=== PATIENT | female | born 1955 | race Caucasian/White ===

== ENCOUNTER 2017-03-25 08:08 | Outpatient (CLI) | payer OTHER ==
--- NOTE | 2017-03-25 09:39 | RAD ---
RIGHT HAND THREE VIEWS: History: Polyarthritis. Comparison: None. FINDINGS: Moderate to severe degenerative disease at the carpal metacarpal joint. Mild joint space narrowing. N o acute fracture or malalignment. IMPRESSION: Moderate to severe degenerative change at the carpal metacarpal joint of the thumb. No evidence for i nflammatory arthropathy. POS: OFF
--- NOTE | 2017-03-25 09:42 | RAD ---
LEFT HAND THREE VIEW: History: Polyarthritis. Comparison: None. FINDINGS: Moderate degenerative change of the thumb carpal metacarpal joint. Mild narrowing of the 2nd and 3rd metacarpal phalangeal joints. No erosions or periostitis. Radiocarpal alignment is normal. No acute fracture. IMPRESSION: 1. Moderate to severe degenerative disease of the carpal metacarpal joint. 2. Focal signal erosion of the medial margin of the third metacarpal head can be seen with inflammato ry arthropathy. POS: OFF
--- NOTE | 2017-03-25 09:44 | RAD ---
CERVICAL SPINE COMPLETE WITH FLEXION AND EXTENSION: History: Polyarthritis. Comparison: None. FINDINGS: There is no listhesis with flexion or extension. ACDF at C6-7. Moderate degenerative disc space heigh t loss at C5-6. No acute fracture or malalignment. IMPRESSION: 1. No listhesis with flexion or extension. 2. Moderate degenerative disc space height loss at C5-6. 3. Intact ACDF hardware at C6-7. POS: OFF
== END 2017-03-25 08:09 | disposition home or self-care (01) ==
LOC: SCSRAD 08:08
PROVIDERS: ATTEND Student in an Organized Health Care Education/Training Program
DX: M06.4 Inflammatory polyarthropathy (principal); M50.322 Other cervical disc degeneration at C5-C6 level; Z98.1 Arthrodesis status; M19.042 Primary osteoarthritis, left hand; M19.041 Primary osteoarthritis, right hand
CPT/HCPCS: 72052

== ENCOUNTER 2017-07-31 07:44 | Outpatient (CLI) | payer OTHER ==
--- NOTE | 2017-07-31 10:11 | MRI ---
CERVICAL SPINE MRI WITHOUT CONTRAST: HISTORY: Cervical radiculopathy. Cervical fusion. COMPARISON: None. TECHNIQUE: Cervical spine MRI is performed without intravenous Gadolinium administration. Multisequential, mult iplanar imaging is performed. CORRELATION: Cervical spine radiograph 03/25/17. FINDINGS: Appropriate T1 marrow signal intensity of the cervical vertebrae. Cervical spine vertebral height is maintained. There is no evidence of fracture. N significant STIR hyperintensity to suggest edema o r ligamentous injury. There is metallic susceptibility artifact associated with C6-C7 fusion changes. Visualized brain parenchyma, cervicomedullary junction, cervical cord, and the upper thoracic cord stewart ve a normal size and signal intensity. C2-C3: No significant disk-osteophyte complex. No significant central canal stenosis. Foramen are p atent. C3-C4: No significant disk-osteophyte complex. No significant central canal stenosis. Neural quita german are patent. Intrinsic T1 and T2 hyperintensity in the C3 vertebral body is likely due to small h emangioma. C4-C5: No significant disk-osteophyte complex. No significant central canal stenosis. Neural forami na are patent bilaterally. C5-C6: There is a broad-based disk-osteophyte complex that abuts the thecal sac. Ventral subarachno id space is effaced on the axial images. No significant mass effect upon the cord. No T2 hyperinten sity in the cord. Neural foramen are patent bilaterally. C6-C7: Disk prosthesis is present. No significant osteophyte complex. No significant central canal stenosis. Neural foramen are patent. C7-T1: No significant disk-osteophyte complex. No significant central canal stenosis. Neural forame n are patent. IMPRESSION: Post surgical changes at C6-C7. No significant central canal stenosis or significant foraminal narro wing. POS: [facility]
--- NOTE | 2017-07-31 10:41 | MRI ---
MRI LUMBAR SPINE WITHOUT CONTRAST: HISTORY: Lumbar radiculopathy with bilateral leg pain and numbness. Difficulty walking. COMPARISON: None. TECHNIQUE: Multiplanar, multisequence MR images were obtained of the lumbar spine without contrast. FINDINGS: A scar is seen in the paraspinal soft tissues in the mid lumbar spine. There is a tiny Tarlov cyst p osterior to the sacrum, within the central canal. The vertebral bodies demonstrate normal height and alignment without fracture or subluxation. Generalized disk desiccation is seen. The conus medullaris terminates normally at T12. The prevertebral soft tissues are unremarkable. T12-L1: Unremarkable. L1-L2: A small disk osteophyte complex is seen. No posterior facet arthrosis. No central canal acosta nosis. No neural foraminal stenosis. L2-L3: A minimal central protrusion is seen. Mild bilateral posterior facet arthrosis. No central canal stenosis. No neural foraminal stenosis. L3-L4: A minimal generalized concentric disk bulge is seen. Mild bilateral posterior facet arthrosi s. No central canal stenosis. Mild bilateral neural foraminal stenosis. L4-L5: A small disk osteophyte complex is seen. Mild bilateral posterior facet arthrosis. No centr al canal stenosis. Moderate left and mild right neural foraminal stenosis. L5-S1: A minimal generalized concentric disk bulge is seen. Moderate bilateral posterior facet arth rosis. No central canal stenosis. No neural foraminal stenosis. IMPRESSION: Mild degenerative changes of the lumbar spine, as above. POS: [facility]
== END 2017-07-31 07:45 | disposition home or self-care (01) ==
LOC: TBSIIMAG 07:44
PROVIDERS: ATTEND Neurological Surgery
DX: M47.26 Other spondylosis with radiculopathy, lumbar region (principal); M47.27 Other spondylosis with radiculopathy, lumbosacral region; M51.17 Intervertebral disc disorders with radiculopathy, lumbosacral region; M51.16 Intervertebral disc disorders with radiculopathy, lumbar region; Z98.890 Other specified postprocedural states
CPT/HCPCS: 72141; 72148

== ENCOUNTER 2018-07-22 04:52 | Outpatient (CLI) | payer OTHER ==
[2018-07-22 10:57] LABS: #Eosinphils 0.2 thou/uL (0.0-0.7); #Lymphocytes 2.1 thou/uL (1.20-3.40); #Monocytes 0.6 thou/uL (0.11-0.59); #Neutrophils 3.3 thou/uL (1.40-6.50); %Basophils 0.4 % (0.0-1.0); %Eosinophils 2.5 % (0.0-10.0); %Lymphocytes 34.1 % (21.0-51.0); %Monocytes 9.8 % (0.0-10.0); %Neutrophils 53.2 % (42.0-75.0); Hemoglobin 13.2 g/dL (12.0-16.0); Mean Corpuscular HGB CONC 32.3 g/dL (32.0-36.0); Mean Corpuscular Volume 86.7 fL (78.0-98.0); Mean Platelet Volume 8.3 fL (7.4-10.4); Platelet Count 209 thou/uL (130-400); RBC Distribution Width 12.7 % (11.5-14.5); Red Blood Cell (RBC) Count 4.71 mill/uL (4.20-5.40); White Blood Cell (WBC) Count 6.2 thou/uL (4.8-10.8)
[2018-07-22 12:13] LABS: Bilirubin Negative (Negative); Blood, Urine Negative (Negative); Clarity CLEAR (Clear); Glucose, Urine (Dipstick) Negative (Negative); Leukocyte Negative (Negative); Nitrite Negative (Negative); Protein, Urine (Dipstick) Negative (Neg-Trace); Specific Gravity, Urine 1.009 (1.002-1.036); Urobilinogen 0.2 mg/dL (0.2-1.0); pH, Urine 5.5 (5.0-9.0)
[2018-07-22 12:14] LABS: Bacteria/HPF None Seen HPF (None Seen); Hyaline Casts/LPF 0-3 HYALINE CAST LPF (0-3 Hyaline); Pathc Cast-AUWi Flag 0.27 (0-2.49); RBC/HPF 0-3 HPF (0-3); Squamous Epithelial 0-3 HPF (0-3); WBC/HPF None Seen HPF (0-3)
== END 2018-07-22 04:53 | disposition home or self-care (01) ==
LOC: LABBT 04:52
PROVIDERS: ATTEND Orthopaedic Surgery Hand Surgery
DX: Z01.812 Encounter for preprocedural laboratory examination (principal); M18.11 Unilateral primary osteoarthritis of first carpometacarpal joint, right hand
CPT/HCPCS: 81001; 85025

== ENCOUNTER 2018-07-27 13:14 | Day surgery (SDC) | payer OTHER ==
[2018-07-22 09:56] VITALS: BMI 30.1
[~2018-07-27 13:14] MED LIST: Dexamethasone 20 MG/5 ML VIAL ONE; Ketorolac Tromethamine 30 MG/ML VIAL ONE; Lidocaine 1% PF 5 ML VIAL ONE; Metoclopramide HCl 10 MG/2 ML VIAL ONE; Ondansetron PF 4 MG/2 ML Vial ONE; PHENYLEPHRINE-NS 100 MCG/ML 10 ML SYRINGE ONE; PROPOFOL 200 MG/20 ML VIAL ONE; ePHEDrine 50 MG/ML VIAL ONE
[2018-07-27] MEDS ORDERED: Clindamycin/D5W 600 mg/50 ml Premix Bag ONE (14:48)
[2018-07-27] MEDS ORDERED: Bupivacaine PF 0.5% 30 ML VIAL ONE ×2 (15:28→17:04)
[2018-07-27] MEDS ORDERED: Bacitracin Zinc Ointment 30 gm TUBE ONE (15:29)
[2018-07-27] MEDS ORDERED: Sodium Chloride 0.9% 10 ML ONE (15:29)
[2018-07-27] MEDS ORDERED: Fentanyl 100 MCG/2 ML VIAL ONE ×4 (15:30→20:24)
--- NOTE | 2018-07-27 19:48 | RAD ---
Intraoperative imaging of the right thumb: 07/27/2018 COMPARISON: None HISTORY: Intraoperative imaging during Arthroplasty FINDINGS: 9 images are provided. Percutaneous pin overlies the first metacarpal phalangeal joint. Lat er imaging demonstrates percutaneous pins overlying the base of the first and second metacarpals. Portions of the distal carpal row laterally appear postsurgically absent on the later imaging. IMPRESSION: Intraoperative imaging as above.
[2018-07-27] MEDS ORDERED: Ketorolac Tromethamine 30 MG/ML VIAL ONE (19:52)
[2018-07-27] MEDS ORDERED: HYDROcodone/Acetaminophen 5/325 mg Tablet ONE (20:59)
--- NOTE | 2018-07-28 08:26 | OP ---
DATE OF PROCEDURE: 07/27/2018 PREOPERATIVE DIAGNOSES: 1. 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 2. Marked palmar capsule laxity, metacarpophalangeal joint. PROCEDURE PERFORMED: 1. Metacarpophalangeal joint. a. Arthrotomy. b. Capsulodesis with pinning, metacarpophalangeal joint. 2. Carpometacarpal joint. a. Total trapeziectomy. b. [place], flexor carpi radialis tendon for tendon transfer to the palm from the forearm. c. Carpometacarpal joint ligament replacement tendon arthroplasty. d. A1 sandra release. COMPLICATIONS: None. FINDINGS: the patient had a very large ulnar and proximal cyst necessitating change of tunnel position to slightly more dorsal in its proximal interest. COMPLICATIONS: None. TOURNIQUET TIME: 130 minutes. ESTIMATED BLOOD LOSS: 50 mL. SPECIMEN REMOVED: Trapezium. DESCRIPTION OF PROCEDURE: After successful general endotracheal anesthesia, the limb was prepped and draped. The patient did not have a block, so immediately after making the surgical fish for the procedure as listed on the consent to include the palmar capsulodesis at the MP joint, we then injected a total of 30 mL divided with 10 mL between the two primary surgery sites and 5 at each of the harvest sites, this was for the flexor carpi radialis. We then inflated the tourniquet after waiting 5 minutes post anesthetic, subcutaneous injection and after exsanguinating the limb. We then made a zigzag incision and dissected down to the radial digital nerves, identified them, retracted them from the center field and identified the A1 sandra, released the A1 sandra. We then retracted the tendon ulnarly, flexor pollicis longus, and found the joint. We made a v-shaped incision just proximal to the sesamoids at the joint capsule, it was very dykes capsule, but lax. We resected 1 mm circumferentially, and then using the [id number] technique with 4 separate 4-0 Prolenes, we prepared a closure for tightening the capsulodesis. We then flexed the joint at 30 degrees at the MP joint, and pinned it appropriately. We cut the pin after C-arm confirmed excellent position. Then, we tied the sutures and there was no capsular laxity seen. Sutures were cut appropriately, tendon was allowed to fall in place, we closed the incision with interrupted 4-0 nylon and then turned our attention to the primary incision. Here, we made an incision at the junction of the palmar and dorsal skin and carried it to a 0.5 mm radial to the flexor carpi radialis entrance to the wrist. Carried through skin and subcutaneous tissue and found the 2 nerve planes between the median nerve, medial palmar skin and the radial nerve, dorsal skin and them. We found the abductor pollicis longus and then retracted it to see the underlying capsule. I made a capsular incision and carried it through the capsule down to visualize the CMC joint. There was nearly complete loss of chondral surface on the trapezium, but there was 80% loss of chondral surface, but the entire ulna and palmar portion was one large cystic cavity. Thus, we knew we would have to manipulate the drilling based on this. We did a total trapeziectomy to include releasing the joint capsule of the scaphotrapezial joint. There was no arthritis in the trapezoid and then protected the flexor carpi radialis tendon and the radial artery completely. We lifted trapezium out. Some osteophytes were removed and the posterior capsule ulnarly had a large three-0 Prolene placed in for later Anchovy portion of this procedure. We identified the flexor carpi radialis tendon, it was protected and still intact. Then, we had to dissect along the lateral wall and use the C-arm to place a guidewire to help drill out of the area, but there was a large cyst, which met that off tunnel, had to be slightly more palmar on the radial side and then slightly more dorsal on the ulnar side. We still had a 1.5 mm bone bridge on the radial side of the bone. Once we did this, then we over drilled a 2.5 hole with a 3.5 and curetted until we had a large enough area to pass the tendon for this young lady. We made 2 proximal incisions each 1/3 away from the wrist to the insertion at the origin, we found the tendon in both sites, freed the subcutaneous tissue, released the tendon at musculocutaneous junction and removed all the muscle. We then pulled the tendon into the wrist. We had to then in order to pass it, placed a 4-0 Vicryl in technique as used for ACL tendon graft in order to pass the graft. We had to be very careful, because of the large cystic cavity and we did not want to communicate our tendon transfer of the flexor carpi radialis into the cystic region, so this required multiple angle views of the C-arm and visualization as well. We were able to do this and then passed it underneath the abductor pollicis, passed it dorsal and on the adductor pollicis longus into the cavity created by the trapeziectomy. Once this was done, we had a slight tension noted, reduced the joint with a millimeter gap in the frontal plane between the metacarpal bases, but maintaining a Shenton's line. We then pinned it x1 away from the tunnel into the 2nd metacarpal, confirmed by feel and by radiographic visualization. We cut the wire. We then were able to pass the tendon and sutured it 2 times with a 4-0 Prolene to the lateral base of the thumb metacarpal, twice to the abductor pollicis longus, and then to the posterior capsule as well as the flexor carpi radialis deep. We then performed the anchovy portion using the 2 Hussein needles and the previously posterior medial capsule placed 3-0 Prolene and buried it deep. We closed the capsule using the previously tagged 2-0 dyed Vicryl, obtained hemostasis, closed with 2-0 Vicryl, the capsule over the scaphoid pole and distal to the capsule over the CMC arthroplasty space. We obtained subcutaneous hemostasis, cut the wires, have to bend them with approximately 2 mm bent tip at both the MP joint and the thumb metacarpal to the index finger metacarpal. We obtained hemostasis at the proximal 2 incisions as well, closed all of the proximal 3 incisions with a running 4-0 Monocryl undyed, and then using interrupted nylon mixture of simple pattern and mattress for the epidermal closure. The patient left the operating room without evidence of anesthetic operative complication. Job ID: [id number]
== END 2018-07-27 21:20 | disposition home or self-care (01) ==
LOC: SDC 13:14
PROVIDERS: ATTEND Orthopaedic Surgery Hand Surgery
PROC: 0RGU04Z Fusion of Right Metacarpophalangeal Joint with Internal Fixation Device, Open Approach (ICD-10-PCS; principal; 2018-07-27)
PROC: 0LX70ZZ Transfer Right Hand Tendon, Open Approach (ICD-10-PCS; principal; 2018-07-27)
DX: M18.0 Bilateral primary osteoarthritis of first carpometacarpal joints (principal); M25.241 Flail joint, right hand; E03.9 Hypothyroidism, unspecified; E78.00 Pure hypercholesterolemia, unspecified; M85.80 Other specified disorders of bone density and structure, unspecified site; K21.9 Gastro-esophageal reflux disease without esophagitis; Z79.899 Other long term (current) drug therapy; Z88.0 Allergy status to penicillin; Z88.2 Allergy status to sulfonamides; Z98.890 Other specified postprocedural states
CPT/HCPCS: 76000; J0131; J1100; J1885; J2001; J2405; J2704; J2765; J3010; J3490; S0020

== ENCOUNTER 2018-12-30 09:16 | Outpatient (CLI) | payer OTHER ==
[2018-12-30 15:30] LABS: #Basophils 0.1 thou/uL (0.0-0.2); #Eosinphils 0.2 thou/uL (0.0-0.7); #Lymphocytes 2.3 thou/uL (1.20-3.40); #Monocytes 0.6 thou/uL (0.11-0.59); #Neutrophils 3.7 thou/uL (1.40-6.50); %Basophils 0.8 % (0.0-1.0); %Eosinophils 2.4 % (0.0-10.0); %Lymphocytes 34.1 % (21.0-51.0); %Monocytes 8.3 % (0.0-10.0); %Neutrophils 54.5 % (42.0-75.0); Hemoglobin 13.5 g/dL (12.0-16.0); Mean Corpuscular HGB CONC 33.1 g/dL (32.0-36.0); Mean Corpuscular Hemoglobin 28.5 pg (27.0-31.0); Mean Corpuscular Volume 86.2 fL (78.0-98.0); Mean Platelet Volume 8.3 fL (7.4-10.4); Platelet Count 229 thou/uL (130-400); RBC Distribution Width 12.9 % (11.5-14.5); Red Blood Cell (RBC) Count 4.72 mill/uL (4.20-5.40); White Blood Cell (WBC) Count 6.9 thou/uL (4.8-10.8)
[2018-12-30 15:43] LABS: Bilirubin Negative (Negative); Blood, Urine Negative (Negative); Clarity Clear (Clear); Glucose, Urine (Dipstick) Normal (Negative); Leukocyte 25 Leu/uL (Negative); Nitrite Negative (Negative); Protein, Urine (Dipstick) Negative (Neg-Trace); RBC/HPF 0-3 HPF (0-3); Squamous Epithelial 0-3 HPF (0-3); Urobilinogen Normal mg/dL (Less than 2); WBC/HPF 0-3 HPF (0-3)
[2018-12-30 15:47] LABS: Bacteria/HPF 1+ HPF (None Seen)
== END 2018-12-30 09:17 | disposition home or self-care (01) ==
LOC: LABBT 09:16
PROVIDERS: ATTEND Orthopaedic Surgery Hand Surgery
DX: Z01.818 Encounter for other preprocedural examination (principal); M19.042 Primary osteoarthritis, left hand
CPT/HCPCS: 81001; 85025; 93005; 93010

== ENCOUNTER 2019-01-04 11:53 | Day surgery (SDC) | payer OTHER ==
[2018-12-30 13:50] VITALS: BMI 30.1
[2019-01-04] MEDS ORDERED: Fentanyl 100 MCG/2 ML VIAL ONE ×3 (13:08→17:46)
[2019-01-04] MEDS ORDERED: Bupivacaine PF 0.5% 30 ML VIAL ONE (13:15)
[2019-01-04] MEDS ORDERED: Bacitracin Zinc Ointment 30 gm TUBE ONE (13:15)
[2019-01-04] MEDS ORDERED: Betamet Acet/Betamet Na Ph 30 MG/5 ML VIAL ONE (13:19)
[2019-01-04] MEDS ORDERED: Midazolam HCl 2 mg/2 ml Vial ONE (13:53)
[2019-01-04] MEDS ORDERED: Phenylephrine HCL 10 MG/ML VIAL ONE (14:37)
[2019-01-04] MEDS ORDERED: Ondansetron PF 4 MG/2 ML Vial ONE (17:48)
[2019-01-04] MEDS ORDERED: Ketorolac Tromethamine 30 MG/ML VIAL ONE (17:48)
--- NOTE | 2019-01-04 18:57 | RAD ---
LEFT FINGERS: INDICATIONS: Imaging during internal fixation left finger. TECHNIQUE: Seven fluoroscopic images are presented from the OR. FINDINGS: These images show pinning of the first digit left hand. The pin overlies the distal first metacarpal. POS: [facility]
[2019-01-04] MEDS ORDERED: traMADol HCl 50 MG TAB ONE (19:03)
--- NOTE | 2019-01-05 09:20 | OP ---
DATE OF PROCEDURE: 01/04/2019 PREOPERATIVE DIAGNOSES: 1. Severe left thumb carpometacarpal osteoarthritis. 2. Left thumb metacarpophalangeal joint volar laxity with hyperextension deformity. POSTOPERATIVE DIAGNOSES: 1. Severe left thumb carpometacarpal osteoarthritis. 2. Left thumb metacarpophalangeal joint volar laxity with hyperextension deformity. FINDINGS: 1. Almost 85% trapezium and 70% base of the thumb metacarpal complete osteoarthritis, [id number], with osteophytes marginal both the thumb and the trapezium on the ulnar aspect. 2. Very lax to the point of passively achieving 65 degrees hyperextension at the MP joint, left thumb. PROCEDURES PERFORMED: 1. Capsulodesis at the MP joint, volar. 2. C-arm supervision less than or equal to 1 hour. 3. Ligament replacement tendon interposition, carpometacarpal joint arthroplasty left thumb. 4. Flexor carpi radialis transfer, forearm to palm. 5. Complete trapeziectomy/carpal bone excision, scaphoid. ESTIMATED BLOOD LOSS: 20 mL. TOURNIQUET TIME: 120 minutes. INDICATIONS: Failed conservative treatment for the degree of osteoarthritis and hyperextension deformity at the adjacent MP joint as described above. DESCRIPTION OF PROCEDURE: After successful general endotracheal anesthesia, the limb was prepped and draped. The patient had the time-out done appropriately. The patient then had the incisions outlined zigzag over the thumb MP joint palmarly and at the junction of dorsal and palmar skin, curved hockey-stick incision from the flexor carpi radialis edge radially toward the midportion of the metacarpal [facility] between this CMC and the MP joint. We also outlined the area for the incision of harvest of flexor carpi radialis tendon and each site received 5 mL of Marcaine 0.5% except for the primary incision of the thumb base which received 10. We then exsanguinated the limb, inflated tourniquet to 250 mmHg pressure. A zigzag incision was made to the metacarpophalangeal joint and we visualized via neuroplasty, all the nerves protected in the radial and ulnar branch. We made A1 sandra release and then removed and retracted the FPL tendon radially. This exposed the joint capsule which was severely lax. We made a V-shaped incision just proximal to the sesamoids, and then using four [id number] sutures, we closed the capsule down by approximately 3 mm overlap and before we tied the sutures, we pinned it in approximately 30 degrees of flexion at the MP joint and neutral frontal plane unchanged. Then, we tied the suture after K-wires confirmed by C-arm to be in excellent position. Cut the K-wire, bent it and it protruded 3 mm curved bent from the ulnar side. We then confirmed all sutures were tied in excellent fashion, cut them, closed the wound with interrupted 4-0 nylon epidermal closure only. Now the tourniquet had 40 minutes passed, we then made an incision over the thumb carpal metacarpal base, sparing the radial and superficial nerve branches. We entered the interval between the palmar and the radial nerve intervals. We then entered the space between the abductor and the extensor brevis, lifted up the capsule and dissected first radially and ulnarly. We then tagged the capsule and then lifted off the fascia along with the thenar muscles to expose the entire carpometacarpal joint. We tagged both capsule incisions for later closure. We first worked radially, dissected free around to the scaphotrapezial joint, entered this along the base of the trapezium joint capsule and then identified within the wrist, the flexor carpi radialis. We freed it from its cover, then freed it from the ulnar side of the trapezium and then released the trapezium from its capsule with the ulnar scaphoid as well as the trapezoid. We had placed a K-wire in the trapezium, C-arm brought in the field and identified, we finished dissection until we released it completely to include volar and deep. A few osteophytes were trimmed and the bone of the trapezium showed nearly 85% complete grade 4 degeneration [id number] and there was 75% degeneration at the base of the thumb. We removed the osteophytes from the base of the thumb, then we tagged the posterior ulnar capsule portion of the trapezium, sparing the flexor carpi radialis tendon. We then rotated the thumb so that the nail bed was parallel to the palm, we drilled a hole, protecting all radial nerve branches and tendons in the midportion of the sagittal plane of the metacarpal base 15 mm from its proximal end until we reached the 2.5 drill bit at the junction of the dorsal of the shaft and metacarpal base chondral surface. We then expanded this with 3.5 mm drill, used multiple curettes, so would be large enough to hold the tendon. We then placed a moist dressing on the primary incision and turned to the point where we made 2 harvest incisions from the carpi radialis identified it well above musculotendinous junction and released it. At that point, we then were able to remove all excess muscle, and then pulled into the wrist. Removing further muscle, then we passed a baby curved Katie tendon passer through from radial to ulnar and dorsal to deep, pulled the tendon through without any problems and applied appropriate tension on it until we had pinned the first to the second metacarpal. We now sutured the flexor carpi radialis tendon under appropriate tendon tension deep in the space made by the trapeziectomy, first 2 times to the base of the metacarpal, 2 times to the adductor pollicis longus, and then 2 times, one to the dorsal ulnar base of the thumb where the capsule remnant was still found and one to the deep capsule and the flexor carpi radialis to have appropriate tension. Then, it was enough to be weaved in Anchovy-type situation using heavy 3-0 Prolene, placed deep through the capsule as well as the Hussein needles. Once we had done this, we buried it into the defect in the wound from the trapeziectomy, tied it appropriately, covered it with the joint capsule remnant which we closed with 2-0 Vicryl in interrupted [id number] pattern, brought the fascia back off of the thumb in appropriate position with a figure-of-8 Vicryl, 3-0 undyed and released the tourniquet. We then closed the wound with running Monocryl suture, 3-0, and we did the same for the two palmar foream harvest sites for the tendon. Steri-Strips were placed. Bulky dressing was then applied appropriately to the remainder portion of the hand and the patient left the operating room with a splint on the thumb. No evidence of anesthetic or operative complication. All wires cut slightly below the skin and bent 90 degrees at the tip. Job ID: [id number]
== END 2019-01-04 19:07 | disposition home or self-care (01) ==
LOC: SDC 11:53
PROVIDERS: ATTEND Orthopaedic Surgery Hand Surgery
PROC: 0LX80ZZ Transfer Left Hand Tendon, Open Approach (ICD-10-PCS; principal; 2019-01-04)
PROC: 0LU807Z Supplement Left Hand Tendon with Autologous Tissue Substitute, Open Approach (ICD-10-PCS; principal; 2019-01-04)
PROC: 0RQT0ZZ Repair Left Carpometacarpal Joint, Open Approach (ICD-10-PCS; principal; 2019-01-04)
DX: M18.12 Unilateral primary osteoarthritis of first carpometacarpal joint, left hand (principal); M25.242 Flail joint, left hand; E03.9 Hypothyroidism, unspecified; E78.00 Pure hypercholesterolemia, unspecified; K21.9 Gastro-esophageal reflux disease without esophagitis; M85.80 Other specified disorders of bone density and structure, unspecified site; Z79.899 Other long term (current) drug therapy; Z88.0 Allergy status to penicillin; Z88.2 Allergy status to sulfonamides; Z98.890 Other specified postprocedural states
CPT/HCPCS: 76000; J0702; J1885; J2250; J2370; J2405; J3010; J3370; S0020